=== PATIENT | male | born 1960 | race American Indian/Alaskan Native ===

== ENCOUNTER 2016-12-07 09:40 | Day surgery (SDC) | payer OTHER ==
--- NOTE | 2016-12-07 12:58 | CP.SDSHP ---
Same Day Surgery H & P - History Proposed Procedure: colonoscopy - Allergies Allergies: Allergies No Known Allergies Allergy (Verified 12/07/16 11:38) - Physical Exam Vital Signs: Vital Signs 12/07/16 11:00 Temperature 98.4 F Pulse Rate 77 Respiratory 19 Rate Blood Pressure 159/46 H O2 Sat by Pulse 97 Oximetry - Date & Time Date: 12/07/16 Time: 12:57 Short Stay Discharge - Short Stay Discharge Admitting Diagnosis/Reason for Visit: SCREENING Disposition: HOME/ ROUTINE
[2016-12-07] MEDS ORDERED: Propofol 10 mg/ml Inj (20 ML) ONE (13:03)
[2016-12-07 13:45] VITALS: TEMP 99.3
[2016-12-07 14:06] VITALS: RESP 16; O2SAT 97
[2016-12-07 15:54] VITALS: BP 157/83; PULSE 61
== END 2016-12-07 14:30 | disposition home or self-care (01) ==
LOC: C.ENDO 09:40
PROVIDERS: ATTEND Colon & Rectal Surgery
DX: Z12.11 Encounter for screening for malignant neoplasm of colon (principal); K62.1 Rectal polyp; K64.8 Other hemorrhoids
CPT/HCPCS: 45380; 88305; J2704